=== PATIENT | male | born 1985 | race Caucasian/White ===

== ENCOUNTER 2018-04-02 05:30 | Emergency (ER) | payer OTHER, SELFPAY ==
[2018-04-02] VITALS (33 sets, daily range): BP systolic 99–152; BP diastolic 64–109; PULSE 112–131; RESP 19–48; TEMP 37.4; O2SAT 89–100
--- NOTE | 2018-04-02 05:59 | ED.GENADUL_ITS ---
Discharge Plan Disposition Patient Disposition: HOME Condition: Fair Discharge Details Chief Complaint: RespSymp Clinical Impression: Dyspnea, Pneumonia Reason For Visit: CHRISTOPH Primary Care Provider: Alma Gregory ED Provider: Ever Blackwell Home Meds and New Rx's Prescriptions: New prednisone 20 mg tablet 60 mg PO DAILY 4 Days Qty: 12 RF: 0 levofloxacin 750 mg tablet 750 mg PO DAILY Qty: 5 RF: 0 No Action tizanidine [Zanaflex] 4 MG capsule 1 tab PO .QID PRN RF: 0 Discharge Instructions Instructions: Pneumonia (ED) Discharge Data Discharge Date/Time-TO BE ENTERED AT DEPARTURE: 04/02/18 09:48 Medical Decision Making <Opal Pal DO - Last Filed: 04/04/18 08:24> 32-year-old male who presents with flulike symptoms and intermittent fevers for 5 days, left chest and left back pain since yesterday, and shortness of breath since 4 AM this morning. Given neb treatment per EMS. On arrival to ED, heart rate 120s, respirations 40s, O2 sat 94% on room air. Temp of 99.3. Patient appears uncomfortable with mild respiratory distress speaking in 3-4 word sentences. He is standing up leaning forward onto the stretcher due to discomfort in left chest and back which she states is worse with movement and coughing. He has scattered wheezing and rhonchi throughout. No calf tenderness or leg swelling. No DVT/PE risk factors. Left chest and back pain worse with movement and cough, so this appears muscular skeletal. Considering patient's age, symptom presentation, differential diagnosis appears most likely pneumonia, acute bronchitis, influenza. Due to the tachycardia, chest pain, back pain and hypoxia, will also do an EKG, chest x-ray and d-dimer. We will give a dose of Solu-Medrol and 10 mg albuterol neb and IVF and reassess. 0720 --labs reviewed and note white blood cell count 14, troponin negative, d- dimer 1574. Mag 1.4, will replete. Due to elevated d-dimer, will send for CT chest for PE study. His creatinine is 1.6 and GFR 39, will give fluids and sent for CT. 0820 --case endorsed to Dr. Blackwell to f/u on CT chest results and pt response to meds and final disposition. Review of CXR/CT in ED appears consistent with possibly pneumonia, antibiotics ordered. Medical Records Medical records reviewed: Yes I reviewed the patient's medical records. Lab Data Lab results reviewed: Yes I reviewed the patient's lab results. ECG Data Attestation: I personally reviewed and interpreted this ECG (s) as follows: Interpretation: 0631 -- 117, sinus, no ST elevation or depression, QTC 438. QRS 92. HPI <Opal Pal DO - Last Filed: 04/04/18 08:24> General Mode of arrival: ambulatory . Date/Time Provider Initiated Documentation: 04/02/18 05:48 . Limitations to Documentation: no limitations . Information obtained by: patient . HPI Narrative: Patient is a 32-year-old male who presents with cold and flulike symptoms for 5 days, and shortness of breath since this morning. Patient also complaining of left-sided chest and back pain worse with coughing since yesterday. Patient admits to intermittent fevers over the past few days. EMS gave patient neb treatment in route. Difficult to obtain full history due to patient's discomfort with shortness of breath and with chest and back pain and currently receiving albuterol treatment Related Data Home Medications Medication Instructions Recorded Confirmed tizanidine [Zanaflex] 1 tab PO .QID PRN 12/10/14 04/02/18 levofloxacin 750 mg PO DAILY #5 tab 04/02/18 prednisone 60 mg PO DAILY 4 Days #12 tab 04/02/18 Previous Rx's Medication Instructions Recorded levofloxacin 750 mg PO DAILY #5 tab 04/02/18 prednisone 60 mg PO DAILY 4 Days #12 tab 04/02/18 Allergies Allergy/AdvReac Type Severity Reaction Status Date / Time No Known Allergies Allergy Unverified 04/02/18 05:37 General Stated Complaint: RespSymp JOSEFINA: 2 Review of Systems <DO Monroe Rey Last Filed: 04/04/18 08:24> Review of Systems All systems reviewed & are unremarkable except as noted in HPI and below Constitutional Reports as per HPI, Denies chills and Denies fever(s) Eyes Denies blurry vision ENT Denies dizziness, Reports nasal congestion, Reports nasal discharge, Denies sore throat and Denies throat swelling Cardiovascular Denies chest pain and Reports dyspnea Respiratory Reports cough and Reports dyspnea Gastrointestinal Denies abdominal pain, Denies diarrhea and Denies vomiting Genitourinary Denies hematuria and Denies dysuria Musculoskeletal Denies back pain and Denies numbness Integumentary/Breasts Denies lesions and Denies rash Neurologic Denies dizziness and Denies numbness Allergic/Immunologic Denies throat swelling PFSH <Opal Pal DO - Last Filed: 04/04/18 08:24> Medical History Kyphosis (Acute) Surgical History No significant past surgical history (Acute) Social History Smoking/Tobacco Use Status: Current every day alcohol intake: never substance use type: marijuana Exam <Opal Pal DO - Last Filed: 04/04/18 08:24> Const General: cooperative and healthy appearing Orientation: alert and awake HENMT Head: normal to inspection Ears: hearing grossly normal bilaterally, external ears normal and TM's normal bilaterally General nose exam: external nose normal Face and sinus: normal facial exam Mouth: oral mucosae normal Teeth and gingiva: dentition normal Throat: posterior oropharynx normal Eyes General: appearance normal, both eyes and all related structures Eyelids: eyelids normal EOM: EOM intact bilaterally Neck Neck: normal visual inspection Lymphatic: no lymphadenopathy noted Chest Chest: normal inspection of the chest Resp Effort & Inspection: not able to speak in complete sentences (3-4 word sentences) and respiratory distress (mild-moderate) Auscultation: rhonchi and wheezes Cardio Rate: tachycardic Rhythm: regular rhythm GI Inspection: normal to inspection Palpation: soft, not firm, no guarding, no hepatosplenomegaly, no masses and nontender Auscultation: normal bowel sounds Skin General skin exam: no rashes or lesions noted Neuro General: alert and awake Cognition: normal cognition Speech: speech normal Gait: normal gait Motor: muscle tone normal throughout Sensory Exam: no sensory deficits noted Extrem General: normal to inspection, full ROM, normal capillary refill, no calf tenderness bilaterally and no edema Psych Appearance: grossly normal Mental Status: mental status grossly normal Speech and Movement: speech and movement normal Affect: normal affect Thought Process: normal Course <DO Monroe Rey Last Filed: 04/04/18 08:24> Vital Signs Temperature 99.3 F 04/02/18 05:27 Pulse 128 H 04/02/18 05:27 Respiratory Rate 48 H 04/02/18 05:27 Blood Pressure 139/82 04/02/18 05:27 Pulse Oximetry 94 L 04/02/18 05:27 Temperature 99.3 F 04/02/18 05:27 Temperature Source Oral 04/02/18 05:27 Pulse 128 H 04/02/18 05:27 Respiratory Rate 48 H 04/02/18 05:27 Respiratory Effort Labored 04/02/18 05:36 Blood Pressure 139/82 04/02/18 05:27 Blood Pressure Position Sitting 04/02/18 05:27 Pulse Oximetry 94 L 04/02/18 05:27 Oxygen Delivery Method Room Air 04/02/18 05:27 Oxygen Flow Rate 0 04/02/18 05:27 Sign Out <Opal Pal DO - Last Filed: 04/04/18 08:24> Sign Out Data: Sign Out Comment: Case endorsed to Dr. Blackwell to f/u on CT results and response to meds and final disposition Last updated by Opal Pal DO at 04/02/18 08:43 Post-Handoff Eval: pt's CT shows pna, no Pe or other findings per Dr. Leihg. He is 95% on room air, rr of 18 on my exam and speaking in full sentences. I did give a dose of ativan as I felt some of his pain was musculoskeletal in nature and on reexam he was asleep resting comfortably in no distress. I feel is stable for d/c on PO abx. I did advise f/u with pcp and return precautions given
[2018-04-02] MEDS: methylPREDNISolone SUCC 125 MG VIAL IVP (06:00)
[2018-04-02] MEDS: Albuterol 2.5 MG/3 ML INH SOLN VIAL 10 MG UPD (06:00)
[2018-04-02] MEDS: Normal Saline 1,000 ML 1000 ML IV ×2 (06:31→07:05)
[2018-04-02] MEDS: Ketorolac 30 MG/ML VIAL IVP (06:31)
[2018-04-02 06:32] LABS: Abs Immature Grans 0.26 k/cumm (0.0-0.09); HCT 43.6 % (40.0-50.0); HGB 15.2 g/dL (13.5-17.5); Mean Corp. HGB Concentration 34.9 g/dL (32.0-36.0); Mean Corpuscular Hemoglobin 30.3 pg (27.0-33.0); Mean Platelet Volume 9.6 fL (8.0-11.0); Platelet Count 251 x1000/uL (130-400); RBC 5.01 m/cumm (4.50-6.00); White Blood Cell Count 14.74 k/cumm (4.4-10.8)
[2018-04-02 06:47] LABS: ALT 31 U/L (12-78); AST 27 U/L (15-37); Albumin 2.9 g/dL (3.4-5.0); Alkaline Phosphatase 84 U/L (46-116); Anion Gap 13.3 mmol/L (3-11); BUN 21 mg/dL (7-18); Bilirubin, Total 1.1 mg/dL (0.2-1.0); CO2 25.7 mmol/L (21.0-32.0); CREATININE 1.96 mg/dL (0.70-1.30); Calcium 9.2 mg/dL (8.5-10.1); Chloride 92 mmol/L (98-107); Estimated GFR 39.35 (mL/min/1.73m2); Glucose 172 mg/dL (70-100); Magnesium 1.4 mg/dL (1.8-2.4); Potassium 3.4 mmol/L (3.5-5.1); Sodium 131 mmol/L (136-145); Total Protein 8.3 g/dL (6.4-8.2)
[2018-04-02 06:52] LABS: Troponin I < 0.02 ng/mL (0.00-0.06)
--- NOTE | 2018-04-02 06:55 | DI.RAD_ITS ---
SYMPTOM/DIAGNOSIS: COUGH, LT SIDED CHEST PAIN PORTABLE AP CHEST: Comparison is made with 04/18/14. Heart size and pulmonary vasculature are stable and within normal limits. There are bilateral basilar infiltrates seen. No effusion or pneumothorax is identified. The bones appear intact. IMPRESSION: Nonspecific bilateral basilar infiltrates which may represent pneumonia.
[2018-04-02 07:04] LABS: Absolute Lymphocyte Count 1.33 k/cumm (1.2-3.4); Absolute Monocyte Count 0.74 k/cumm (0.11-0.7); Absolute Neutrophil Count 12.53 k/cumm (1.2-6.7); Diff Comment Manual Differential
--- NOTE | 2018-04-02 07:07 | DI.VRAD_ITS ---
EXAM: XR Chest, 1 View EXAM DATE/TIME: 04/02/2018 5:57 AM CLINICAL HISTORY: 32 years old, male; Pain; Chest pain; Left-sided chest pain; Patient HX: L sided chest pain front to back, back pain TECHNIQUE: XR of the chest, 1 view. COMPARISON: CR CHEST 2 VIEWS PA,LAT 04/18/2014 11:47 AM FINDINGS: Lungs: Minimal nonspecific interstitial prominence. Pleural space: Unremarkable. No pleural effusion. No pneumothorax. Heart/Mediastinum: Unremarkable. No cardiomegaly. Bones/joints: Unremarkable. IMPRESSION: Minimal nonspecific interstitial prominence. Dictated and Authenticated by: Preston Sandoval MD. Ordering:URBAN Joseph MD
[2018-04-02 07:11] LABS: D-Dimer 1574 ng/mlFEU (<500)
--- NOTE | 2018-04-02 07:22 | DI.CT_ITS ---
SYMPTOM/DIAGNOSIS: PE, SOB, LT CHEST AND BACK PAIN PE CHEST CT: CT angiography was performed with multi slice acquisition and multi planar and 3D reconstruction. CT scan of the chest was performed according to the pulmonary embolus protocol. The thoracic aorta is of normal caliber. No aneurysm or dissection is identified. The central pulmonary arteries are patent. No evidence of a central pulmonary embolus is seen. The heart size is within normal limits. No pericardial effusion is seen. No findings to suggest right ventricular dysfunction are present. Mildly enlarged lymph nodes are seen in the mediastinum. There is a small left pleural effusion. No significant right pleural effusion is seen. No pneumothorax is identified. There are scattered opacities seen in the lower lobes and the right middle lobe suspicious for multi focal pneumonia. The tracheobronchial tree is unremarkable. Degenerative changes are seen in the spine. There is slight patient motion artifact present. IMPRESSION: 1. No evidence of a central pulmonary artery embolus, aortic dissection or aneurysm. 2. Multi focal pulmonary opacities suspicious for pneumonia. 3. Small left pleural effusion. The findings were discussed with the ER on the date of the examination.
[2018-04-02] MEDS: MORPHine 10 MG/ML VIAL 4 MG IVP (08:00)
[2018-04-02] MEDS: Omnipaque 350 MG/ML 100 ML BTL IJ (08:14)
[2018-04-02] MEDS: LEVOFLOXACIN 500 MG, LEVOFLOXACIN 250 MG 750 MG PO (08:30)
[2018-04-02] MEDS: LORazepam 2 MG/ML VIAL 1 MG IVP (08:40)
[2018-04-02] MEDS: Albuterol HFA 8 GM 60 PUFF INH IH (09:31)
== END 2018-04-02 09:48 | disposition home or self-care (01) ==
PROVIDERS: Physician Assistant; Emergency Provider Emergency Medicine; PCP Nurse Practitioner Family
DX: R06.00 Dyspnea, unspecified (principal); J18.9 Pneumonia, unspecified organism; R07.81 Pleurodynia
CPT/HCPCS: 36415; 71275; 80053; 87449; 93005; 94640; 96361; 96374; 96375; 99285; 71045; 83735; 84484; 85025; 85379; 93010; J1885; J2060; J2930; J3490; J7613

== ENCOUNTER 2018-04-09 15:45 | Outpatient (CLI) | payer OTHER, SELFPAY ==
--- NOTE | 2018-04-09 15:00 | DI.RAD_ITS ---
SYMPTOMS/DIAGNOSIS: PNEUMONIA, J18.9 PA AND LATERAL CHEST: Comparison is made with chest x-ray and chest CT of March,. There is now a large left pleural effusion, increasing from the previous exams. There is adjacent compressive atelectasis. The right lung appears clear. The cardiac silhouette is partially obscured on the left. A prominent thoracic kyphosis is again noted. IMPRESSION: Large left pleural effusion.
== END 2018-04-09 16:05 ==
PROVIDERS: PCP Nurse Practitioner Family; Visit Provider Nurse Practitioner Family
DX: J18.9 Pneumonia, unspecified organism (principal); J90 Pleural effusion, not elsewhere classified
CPT/HCPCS: 71046

== ENCOUNTER 2018-10-23 17:17 | Outpatient (REF) | payer OTHER, SELFPAY ==
[2018-10-23 19:59] LABS: Anion Gap 7.4 mmol/L (3-11); BUN 11 mg/dL (7-18); CO2 28.6 mmol/L (21.0-32.0); CREATININE 0.92 mg/dL (0.70-1.30); Calcium 8.8 mg/dL (8.5-10.1); Chloride 103 mmol/L (98-107); Glucose 95 mg/dL (70-100); Sodium 139 mmol/L (136-145); TSH (W/Ref FT4) 3.21 uIU/mL (0.36-3.74)
[2018-10-25 10:32] LABS: Hepatitis C Ab w Rflx HCV PCR Negative (NEGAT)
[2018-10-25 12:39] LABS: HIV-1/2 Ag & Ab Screen Negative (NEGAT)
[2018-10-25 13:12] LABS: Hepatitis B Surface Ag Negative (NEGAT)
== END 2018-10-23 17:37 ==
LOC: NCHCN 17:17
PROVIDERS: PCP Family Medicine; Visit Provider Family Medicine
DX: I10 Essential (primary) hypertension (principal); Z00.00 Encounter for general adult medical examination without abnormal findings
CPT/HCPCS: 80048; 86803; 87340; 87389; 84443

== ENCOUNTER 2018-11-30 08:00 | Emergency (ER) | payer OTHER, SELFPAY ==
[2018-11-30 08:04] VITALS: BP 130/65; PULSE 93; RESP 16; TEMP 37; O2SAT 96
--- NOTE | 2018-11-30 08:41 | W.ED.GENAD ---
Discharge Plan Disposition Patient Disposition: HOME Condition: Fair Discharge Details Chief Complaint: Cellulitis Clinical Impression: Cellulitis Primary Care Provider: Gavin Menjivar ED Provider: Carlene Padron Home Meds and New Rx's Prescriptions: New doxycycline hyclate 100 mg capsule 100 mg PO BID Qty: 14 RF: 0 Continued lisinopril-hydrochlorothiazide 20-12.5 mg Tablet 1 tab PO DAILY RF: 0 buprenorphine-naloxone [Suboxone] 12-3 mg Film 1 film BUCCAL Q24H RF: 0 Discharge Instructions Instructions: Cellulitis (ED) Additional Instructions: Encourage hydration. May use Tylenol and ibuprofen as needed for discomfort. Please take the doxycycline as prescribed. Even if symptoms improve, please take the entire course. If you develop fever/chills, increased pain, spreading of the redness, chest pain or shortness of breath or the new/worsening symptoms please seek care urgently once again. Otherwise, please follow-up with primary care this week for reevaluation. Referrals: Gavin Menjivar [Primary Care Provider] - Medical Decision Making Patient is a 33-year-old male with history of kyphosis, chief complaint of erythema to the right lower extremity. He reports this began proxy 4 days ago and is progressive and spreading. Notes erythema to the medial and anterior proximal thigh as well as the medial aspect of the right ankle. Denies any known trauma. No recent travel. No recent antibiotics. No IV drug use. States he has had a low-grade fever T-max of 99.5 at home. Is having tenderness at the time of palpation or rubbing the skin in this area. Denies any numbness or tingling. Denies any swelling. On exam, patient has a well-defined area of erythema that is warm to the touch, tender with palpation. No area of fluctuance. Cord. No calf tenderness. No appreciable swelling. Exam is most consistent with cellulitis. Patient was concern for possible DVT, well score for DVT negative to making patient low risk. His exam is more consistent with cellulitis and patient is very low risk for DVT at this time, I feel that treatment with antibiotics appropriate. The area of erythema was marked by myself. Advise close follow-up with primary care. He was given strict return precautions. All his questions and concerns were addressed and he is in agreement this plan. HPI General Mode of arrival: ambulatory. Date/Time Provider Initiated Documentation: 11/30/18 08:22. Limitations to Documentation: no limitations. Information obtained by: patient and RN notes reviewed. History of Present Illness 33 year old M presents to the emergency department with the chief complaint of erythema to RLE, described as moderate, with intensity rated at 6. Quality is described as aching, and is localized to the right and lower extremity. Patient reports no radiation. Patient started experiencing this day(s) (4) and it has been constant. No relieving factors improve symptom(s), No exacerbating factors reported . Patient notes fever/chills (reports tmax 99.5 at home) and rash; denies chest pain, cough, diaphoresis, loss of appetite, nausea/vomiting, shortness of breath and weakness. Patient did receive the following treatments prior to arrival, none Related Data Home Medications Medication Instructions Recorded Confirmed buprenorphine-naloxone [Suboxone] 1 film BUCCAL Q24H 11/30/18 11/30/18 doxycycline hyclate 100 mg PO BID #14 cap 11/30/18 lisinopril-hydrochlorothiazide 1 tab PO DAILY 11/30/18 11/30/18 Previous Rx's Medication Instructions Recorded doxycycline hyclate 100 mg PO BID #14 cap 11/30/18 Allergies Allergy/AdvReac Type Severity Reaction Status Date / Time No Known Allergies Allergy Unverified 11/30/18 08:12 General Stated Complaint: Cellulitis JOSEFINA: 3 Review of Systems Constitutional Constitutional: Reports as per HPI, Denies chills and Denies fever(s) Musculoskeletal Musculoskeletal: Reports as per HPI Integumentary/Breasts Skin/Breast: Reports as per HPI Neurologic Neurologic: Reports as per HPI, Denies sensory deficit and Denies paresthesias [facility] Medical History Kyphosis (Acute) [place] kyphosis Surgical History No significant past surgical history (Acute) Social History Smoking/Tobacco Use Status: Current every day Tobacco Type: e-cigarettes Alcohol Intake: never Drug use: Daily Substance use type: marijuana Do you feel safe at home: Yes Do you feel safe in your relationship?: Yes Exam Const General: cooperative, healthy appearing, comfortable, no acute distress and well developed Nutritional Appearance: average body habitus and well nourished Orientation: alert and awake Resp Effort & Inspection: normal respiratory effort, able to speak in complete sentences and no respiratory distress Cardio Rate: regular rate Rhythm: regular rhythm Skin General skin exam: no ecchymosis, erythema (as marked below), no excoriation(s), no fluctuance, no hypertrophy and no induration Full body images: 1. 2. areas of erythema. no fluctuance. Hot to the touch. Neuro General: alert and awake Cognition: normal cognition Speech: speech normal Gait: normal gait Sensory Exam: no sensory deficits noted Extrem General: abnormal to inspection (erythema as above), full ROM, normal capillary refill, no joint enlargement, no clubbing, cyanosis or edema, no pedal edema, no calf tenderness, normal gait, no calf tenderness bilaterally and other (2+ distal pulses) Psych Appearance: grossly normal and well kempt Mental Status: mental status grossly normal Speech and Movement: speech and movement normal Course Vital Signs Vital signs: Vital Signs Temperature 37 C 11/30/18 08:04 Pulse 93 H 11/30/18 08:04 Respiratory Rate 16 11/30/18 08:04 Blood Pressure 130/65 11/30/18 08:04 Pulse Oximetry 96 11/30/18 08:04 Temperature 37 C 11/30/18 08:04 Temperature Source Oral 11/30/18 08:04 Pulse 93 H 11/30/18 08:04 Respiratory Rate 16 11/30/18 08:04 Respiratory Effort Non-Labored 11/30/18 08:10 Blood Pressure 130/65 11/30/18 08:04 Blood Pressure Position Supine 11/30/18 08:04 Pulse Oximetry 96 11/30/18 08:04 Oxygen Delivery Method Room Air 11/30/18 08:04 Oxygen Flow Rate 0 11/30/18 08:04 Pain Level 6 11/30/18 08:04
== END 2018-11-30 08:54 | disposition home or self-care (01) ==
PROVIDERS: Emergency Provider Physician Assistant; PCP Family Medicine
DX: L03.115 Cellulitis of right lower limb (principal)
CPT/HCPCS: 99283

== ENCOUNTER 2018-12-04 12:07 | Outpatient (CLI) | payer OTHER, SELFPAY ==
[2018-12-04 14:18] LABS: D-Dimer 385 ng/mlFEU (<500)
== END 2018-12-04 12:27 ==
PROVIDERS: PCP Family Medicine; Visit Provider Family Medicine
DX: M79.604 Pain in right leg (principal)
CPT/HCPCS: 36415; 85379

== ENCOUNTER 2020-07-28 18:37 | Outpatient (REF) | payer OTHER, SELFPAY ==
[2020-07-28 19:06] LABS: Anion Gap 8.3 mmol/L (3-11); BUN 13 mg/dL (7-18); CO2 31.7 mmol/L (21.0-32.0); CREATININE 1.1 mg/dL (0.70-1.30); Calcium 9.7 mg/dL (8.5-10.1); Chloride 99 mmol/L (98-107); Glucose 90 mg/dL (74-106); Potassium 4.1 mmol/L (3.5-5.1); Sodium 139 mmol/L (136-145); TSH (W/Ref FT4) 1.71 uIU/mL (0.36-3.74)
== END 2020-07-28 18:38 | disposition home or self-care (01) ==
LOC: NCHCN 18:37
PROVIDERS: PCP Family Medicine; Visit Provider Family Medicine
DX: I10 Essential (primary) hypertension (principal); E66.9 Obesity, unspecified
CPT/HCPCS: 80048; 84443

== ENCOUNTER 2021-11-02 17:17 | Outpatient (REF) | payer OTHER, SELFPAY ==
[2021-11-02 22:36] LABS: Anion Gap 10.3 mmol/L (3-11); BUN 14 mg/dL (7-18); CO2 29.7 mmol/L (21.0-32.0); Calcium 9.3 mg/dL (8.5-10.1); Chloride 99 mmol/L (98-107); Glucose 72 mg/dL (74-106); Potassium 3.9 mmol/L (3.5-5.1); Sodium 139 mmol/L (136-145); Uric Acid 5.6 mg/dL (3.5-7.2)
[2021-11-02 22:56] LABS: Hemoglobin A1C 6.2 % (<5.7)
[2021-11-04 11:54] LABS: Lyme Ab w Rflx to Lyme Confirm Negative (Negative)
[2021-11-07 18:18] LABS: Anaplasma phagocytophilum Negative (Negative); B. miyamotoi PCR Negative (Negative); Babesia divergens/MO-1 Negative (Negative); Babesia duncani Negative (Negative); Babesia microti Negative (Negative); Ehrlichia chaffeensis Negative (Negative); Ehrlichia ewingii/canis Negative (Negative); Ehrlichia muris eauclairensis Negative (Negative)
== END 2021-11-02 17:18 | disposition home or self-care (01) ==
LOC: NCHCN 17:17
PROVIDERS: PCP Family Medicine; Visit Provider Family Medicine
DX: I10 Essential (primary) hypertension (principal)
CPT/HCPCS: 80048; 87798; 83036; 84550; 86618

== ENCOUNTER 2022-11-21 17:43 | Emergency (ER) | payer OTHER, SELFPAY ==
--- NOTE | 2022-11-21 17:45 | DI.RAD_ITS ---
Exam(s) XR HAND RT COMPLETE EXAM: XR HAND RT COMPLETE CLINICAL HISTORY: Finger amputation. TECHNIQUE: 2D digital imaging was performed. COMPARISON: No exams were available for comparison FINDINGS: 3 views There is traumatic fracture amputation of the distal 2nd-index finger at the mid level of the distal phalanx. The distal phalanx is partially amputated as well as fractured and the fracture does extend towards t he DIP joint on its medial aspect. No metallic foreign body seen. Proximal and mid phalanges appear intact. Other fingers unremarkable. IMPRESSION: Fracture amputation distal phalanx 2nd-index finger. DATA REPOSITORY: RADIATION DOSE DELIVERED:
[2022-11-21 17:47] VITALS: BP 197/102; PULSE 95; RESP 22; O2SAT 98
--- NOTE | 2022-11-21 17:58 | ED.GENADUL_ITS ---
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 MAXIMUM DAILY DOSE IS 12MG lisinopril-hydrochlorothiazide 20-12.5 mg Tablet 1 tab PO DAILY Patient Comments: no longer taking 11/21/22 CT buprenorphine-naloxone [Suboxone] 12-3 mg Film 1 film BUCCAL Q24H Patient Comments: No longer taking 11/21/22 CT doxycycline hyclate 100 mg capsule 100 mg PO BID Qty: 14 0RF Patient Comments: no longer taking 11/21/22 CT Discharge Instructions Instructions: Finger Amputation (ED) Additional Instructions: Please keep the dressing on until seen by orthopedics tomorrow. Nothing to eat or drink except for small sips of water after midnight. The anesthesia medication will wear off in approximately 4 hours. Please take the antibiotic with food as directed. Dr. Mcguire should call you tonight with instructions. Keep elevated above the level of your heart tonight. You may apply an ice pack over the dressing. If your finger with a bleed through the dressing you may apply pressure and reinforce the dressing. Please take Tylenol or Ibuprofen with food every 4-6 hours as needed for pain and swelling. Stand Alone Forms: Work Release Referrals: Sharif Mcguire MD [ [facility] STAFF PHYSICIAN] - 1 day Medical Decision Making 37-year-old male presents to the ER with a distal tip of his index finger amputated which occurred just prior to arrival with a lawnmower. Patient reports that a push mower was clogged and he reached down. He is right-hand dominant. Does have a past medical history of high blood pressure. No other injuries or associated symptoms he does not know when his last tetanus vaccination was. Bleeding is controlled upon arrival. He does have distal sensation intact bilaterally is able to slightly bend his PIP. 1814: Contacted orthopedic on-call Dr. Mcguire he was able to review images I sent over WebEx he recommends washout and repair in the OR tomorrow he reports that he will call him tonight to set up a time. Will irrigate here apply occlusive dressing and encourage n.p.o. after midnight. Patient was given Tdap booster and oxycodone. 184: Patient still c/o some pain, with infiltrate approx 1 cc more lidocaine and bupivicaine. Irrigated with Sterile NS by director of medical staff services, Foreign bodies manually removed as much as possible. Wound is contaminated with grass. Dressing applied Xeroform, Kerlix and Coban. Patient given a sling and instructed on elevating it. No need for patient to be n.p.o. after midnight. Patient was sent home with 2 Percocets Keflex and Flagyl. Patient remained hemodynamically stable throughout the remainder of stay. Plan is to have patient follow-up for surgery at 1 PM tomorrow. This text was generated using [employer] dictation system, please disregard any oddities of phrase or misspellings. Imaging Data Radiologic Study: Imaging: X-Ray Radiologist's impression: EXAM: XR HAND RT COMPLETE CLINICAL HISTORY: Finger amputation. TECHNIQUE: 2D digital imaging was performed. COMPARISON: No exams were available for comparison FINDINGS: 3 views There is traumatic fracture amputation of the distal 2nd-index finger at the mid level of the distal phalanx. The distal phalanx is partially amputated as well as fractured and the fracture does extend towards the DIP joint on its medial aspect. No metallic foreign body seen. Proximal and mid phalanges appear intact. Other fingers unremarkable. IMPRESSION: Fracture amputation distal phalanx 2nd-index finger. HPI General Mode of arrival: ambulatory . Date/Time Provider Initiated Documentation: 11/21/22 17:50 . Limitations to Documentation: no limitations . Information obtained by: patient, RN notes reviewed and old records reviewed . HPI Narrative: 37-year-old male presents to the ER with a distal tip of his index finger amputated which occurred just prior to arrival with a lawnmower. Patient reports that a push mower was clogged and he reached down. He is right-hand dominant. Does have a past medical history of high blood pressure. No other injuries or associated symptoms he does not know when his last tetanus vaccination was. Bleeding is controlled upon arrival. He does have distal sensation intact bilaterally is able to slightly bend his PIP. Related Data Home Medications Medication Instructions Recorded Confirmed buprenorphine 12 mg-naloxone 3 mg 1 film buccal Q24H 11/30/18 11/30/18 sublingual film (Suboxone) doxycycline hyclate 100 mg capsule 100 mg PO BID #14 caps 11/30/18 lisinopril 20 1 tab PO DAILY 11/30/18 11/30/18 mg-hydrochlorothiazide 12.5 mg tablet amlodipine 2.5 mg tablet 2.5 mg PO DAILY 11/21/22 11/21/22 buprenorphine 8 mg-naloxone 2 mg 1.5 tab sublingual DAILY 11/21/22 11/21/22 sublingual tablet cephalexin 500 mg tablet 500 mg PO BID 7 days #14 tabs 11/21/22 lisinopril 30 mg tablet 30 mg PO DAILY 11/21/22 11/21/22 metronidazole 500 mg tablet 500 mg PO BID 7 days #14 tabs 11/21/22 Previous Rx's Medication Instructions Recorded doxycycline hyclate 100 mg capsule 100 mg PO BID #14 caps 11/30/18 cephalexin 500 mg tablet 500 mg PO BID 7 days #14 tabs 11/21/22 metronidazole 500 mg tablet 500 mg PO BID 7 days #14 tabs 11/21/22 Allergies Allergy/AdvReac Type Severity Reaction Status Date / Time No Known Allergies Allergy Unverified 11/21/22 17:53 General Stated Complaint: Trauma JOSEFINA: 3 Review of Systems Constitutional Constitutional: Reports as per HPI Musculoskeletal Musculoskeletal: Reports as per HPI and Reports deformity (Distal tip index finger amputation) PFSH All Active Problems (Updated 11/21/22 @ 19:55 by Julieth Plasencia NP) Partial traumatic 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 (Acute) Medical History (Updated 11/21/22 @ 19:55 by Julieth Plasencia NP) Kyphosis Garcia kyphosis Surgical History No significant past surgical history Social History Smoking/Tobacco Use Status: Current every day Tobacco Type: e-cigarettes Smoking risk assessment performed?: Yes Alcohol Intake: never Drug use: Daily Substance use type: marijuana Do you feel safe at home: Yes Do you feel safe in your relationship?: Yes Exam Extrem Right upper extremity: hand Details: abnormal to inspection Details: a deformity Location: of the 2nd digit and laceration 2nd digit distal Details: irregular, actively bleeding (Controlled with pressure), contaminated, involving subcutaneous tissue, involving muscle tissue and with sensation intact Hand/finger images: 1. Distal amputation of finger noted just past the PIP. Able to bend the DIP and sensation intact prior to digital block. Course Vital Signs Vital signs: Vital Signs Pulse 95 H 11/21/22 17:47 Respiratory Rate 22 11/21/22 17:47 Blood Pressure 197/102 H 11/21/22 17:47 Pulse Oximetry 98 11/21/22 17:47 Pulse 95 H 11/21/22 17:47 Respiratory Rate 22 11/21/22 17:47 Respiratory Effort Normal 11/21/22 17:49 Respiratory Depth Normal 11/21/22 17:49 Respiratory Pattern Normal 11/21/22 17:49 Blood Pressure 197/102 H 11/21/22 17:47 Pulse Oximetry 98 11/21/22 17:47 Pain Level 10 11/21/22 17:49 Procedures Nerve Block Nerve Block 1: Time out performed: No Local Anesthetic: Lidocaine 1% and Bupivicaine 0.5% Amount of anesthesia used (mL): 5 Side: right Nerve Blocks: digital (Index Finger) Procedure Successful: Yes (Partial anesthesia achieved) Patient Tolerated Procedure: well Complications: inadequate anesthesia (Re-infiltrated with 1cc) Additional Comments: Anesthesia achieved.
[2022-11-21] MEDS: Lidocaine 1% Multi-Dose 50 ML VIAL (18:17)
[2022-11-21] MEDS: Bupivacaine 0.5% Pres-Free 30 ML VIAL (18:19)
[2022-11-21] MEDS: oxyCODONE 5 mg/Acetaminophen 325 mg TAB 1 TAB PO ×3 (18:47→20:32)
[2022-11-21 19:45] VITALS: BP 164/92; PULSE 82; RESP 18; O2SAT 99
[2022-11-21] MEDS: metroNIDAZOLE 500 MG TAB, 3 TABS/BTL PO (19:55)
[2022-11-21] MEDS: metroNIDAZOLE 500 MG TAB PO (19:55)
[2022-11-21] MEDS: Cephalexin 500 MG CAP PO (19:55)
[2022-11-21] MEDS: Cephalexin 500 MG CAP, 2 CAPS/BTL PO (19:55)
--- NOTE | 2022-11-25 08:14 | NUR.NOTE ---
Accessed chart to locate who Provider was. This is to complete the Ortho paperwork Nursing Note:
== END 2022-11-21 20:32 | disposition home or self-care (01) ==
PROVIDERS: Emergency Provider Registered Nurse Emergency; PCP Family Medicine
DX: S68.120A Partial traumatic metacarpophalangeal amputation of right index finger, initial encounter (principal); I10 Essential (primary) hypertension; W28.XXXA Contact with powered lawn mower, initial encounter; Y93.H2 Activity, gardening and landscaping; Y92.017 Garden or yard in single-family (private) house as the place of occurrence of the external cause; Y99.9 Unspecified external cause status; Z23 Encounter for immunization
CPT/HCPCS: 90472; 99284; 73130

== ENCOUNTER 2022-11-22 13:00 | Day surgery (SDC) | payer OTHER, SELFPAY ==
--- NOTE | 2022-11-22 12:28 | PDOC.DSDIS_ITS ---
Date of service: 11/22/22 Time of Service: 12:28 Discharge Plan Disposition Patient Disposition: Home Condition: Good Discharge Details Reason For Visit: RIF TRAUMATIC AMPUTATION Attending Provider: Sharif Mcguire Primary Care Provider: Gavin Menjivar Home Meds and New Rx's Prescriptions: New acetaminophen 500 mg tablet 1,000 mg PO TID Qty: 90 0RF hydrocodone-acetaminophen 5-325 mg tablet 1 tab PO Q6H PRN (Reason: pain) Qty: 6 0RF ibuprofen 600 mg tablet 600 mg PO TID PRN (Reason: pain) Qty: 90 0RF Continued amlodipine 2.5 mg tablet 2.5 mg PO DAILY Patient Comments: TAKE 1 TABLET BY MOUTH ONCE DAILY WITH LISINOPRIL lisinopril 30 mg tablet 30 mg PO DAILY Patient Comments: TAKE 1 TABLET BY MOUTH EVERY DAY buprenorphine-naloxone 8-2 mg tablet, sublingual 1.5 tab SUBLINGUAL DAILY Patient Comments: DISSOLVE 1.5 TABLETS UNDER THE TONGUE ONCE DAILY. MAXIMUM DAILY DOSE IS 12MG cephalexin 500 mg tablet 500 mg PO BID 7 Days Qty: 14 0RF metronidazole 500 mg tablet 500 mg PO BID 7 Days Qty: 14 0RF lisinopril-hydrochlorothiazide 20-12.5 mg Tablet 1 tab PO DAILY Patient Comments: no longer taking 11/21/22 CT buprenorphine-naloxone [Suboxone] 12-3 mg Film 1 film BUCCAL Q24H Patient Comments: No longer taking 11/21/22 CT doxycycline hyclate 100 mg capsule 100 mg PO BID Qty: 14 0RF Patient Comments: no longer taking 11/21/22 CT Discharge Instructions Additional Instructions: Finger Amputation Discharge Instructions Activity: You should keep the hand elevated as much as possible for the first few days. You may use the other fingers as tolerated but avoid trying to do too much too soon. You may perform light activities with the dressing in place. Dressing/Cast: Your splint should stay in place at all times. Do NOT get it wet. You may loosen the TRACEY wrap if you feel it is too tight and then rewrap more loosely. Medications: - You should take Tylenol and Ibuprofen for baseline pain control. - You have Hydrocodone for breakthrough pain. - You may apply ice over the thumb. 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
[2022-11-22 13:16] VITALS: BP 131/91; PULSE 105; RESP 18; TEMP 36.7; O2SAT 98
[2022-11-22] MEDS: Lidocaine 1% Multi-Dose 10 ML VIAL (14:36)
[2022-11-22] MEDS: Sodium Bicarbonate 50 MEQ/50 ML VIAL (14:37)
[2022-11-22] MEDS: Bupivacaine 0.25% Pres-Free 30 ML VIAL (15:00)
[2022-11-22 15:09] VITALS: BP 104/82; PULSE 74; RESP 16; TEMP 36.6; O2SAT 99
--- NOTE | 2022-11-22 21:51 | ROE_ITS ---
Date of service: 11/22/22 Time of Service: 15:00 Operative Note Operative Note DATE OF PROCEDURE: 11/22/22 PRE-OP DIAGNOSIS: Traumatic transphalangeal amputation of Right Index Finger POST-OP DIAGNOSIS: same PROCEDURE: Revision Amputation - Right index finger SURGEON: Sharif Mcguire ANESTHESIA TYPE: Local By Surgeon Refer to Anesthesia Record ESTIMATED BLOOD LOSS: 10 PATHOLOGY: none sent TOURNIQUET TIME: 0 COMPLICATIONS: None Patient was transported to: same day Patient's condition: stable Indications: I was called about Rishabh injuring his right index finger with a interactive art director blade. Given the severity of the injury and its contamination, i recommended an initial I&D in the ED followed by repeat I&D and revision amputation in the OR. I discussed this procedure with the patient. I reviewed the risks of the procedure to include, but not limited to, bleeding, infection, pain, stiffness, nail regrowth, damage to nerves or vessels. Despite these risks, the patient elected to proceed. Findings: There is a traumatic transphalangeal amputation phalanx of the right index finger. There is still some grafting formation of the wound. There is comminution of the phalanx. The laceration was a slightly dorsal oblique through the base of the nail fold. I was able to remove some loose bone pieces, sharply debrided the wound, and closed the wound leaving a stump of the phalanx intact. Procedure Description: Rishabh was greeted in the preoperative holding area where the correct side was identified and marked. The consent was reviewed with the patient and signed. All questions were answered. Rishabh was taken back to the operating room. The patient was placed into the supine position on the operating room table with the right arm on an arm board. All bony prominences were well padded. He had previously taken Keflex for his antibiotic prior to the case. The right arm was then prepped with Chloraprep and draped in a standard fashion with stockinette and extremity drape. A timeout to confirm correct identity, side and site, procedure, allergies, anesthesia, and medical concerns was performed. A digital block was then performed using 1% lidocaine buffered with sodium bicarbonate. This was allowed time to set up completely and was tested before proceeding with the case. I also then added 0.25% bupivacaine to extend this digital block. The wound was then thoroughly irrigated. Hematoma and fibrous tissue was removed. Using a knife as well as a forcep I was able to remove any gross debris of the wound and necrotic tissue. There were multiple radiographs which were also removed. This is inspected thoroughly. The remnant nail was then removed sharply as well as the germinal matrix undermining the medial fold to remove it in its entirety. There were multiple pieces of the distal phalanx, some which were completely loose. These were removed. The finger had a decent palmar flap of tissue with significant pulp still attached. I was able to slightly angled this and then made over the end of the finger with minimal gapping. However, there was some prominence from the palmar aspect of the distal phalanx. Therefore, I used a rongeur to resect a portion of this bone to allow better contouring of the finger. This is inspected in multiple positions and evaluate for any sharp prominences or points of pressure. Once this was adequate, I was able to reduce the flap of tissue over the finger with no more than 2 to 3 mm of exposed pulp material between epidermis edges. Once again I irrigated this thoroughly before final closure. I used a 3-0 nylon to secure the closure incorporating the palm and the skin over the end of the amputated distal phalanx. The finger was dressed with Xeroform, 4 x 4, tube gauze dressing. The patient tolerated the procedure well and was returned to the Same Day Surgery area in a stable condition suffering no known complication.
== END 2022-11-22 15:33 | disposition home or self-care (01) ==
PROVIDERS: PCP Family Medicine; Visit Provider Student in an Organized Health Care Education/Training Program
PROC: (CPT 26951; principal; 2022-11-22 15:15)
DX: S68.610A Complete traumatic transphalangeal amputation of right index finger, initial encounter (principal); W26.8XXA Contact with other sharp object(s), not elsewhere classified, initial encounter; S68.620A Partial traumatic transphalangeal amputation of right index finger, initial encounter
CPT/HCPCS: 26236

== ENCOUNTER 2022-12-12 14:03 | Day surgery (SDC) | payer OTHER, SELFPAY ==
--- NOTE | 2022-12-12 12:24 | W.PM.DSUDISC ---
Date of service: 12/12/22 Time of Service: 13:52 Discharge Plan Disposition Patient Disposition: Home Condition: Good Discharge Details Reason For Visit: traumatic partial amputation of right IF Attending Provider: Sharif Mcguire Primary Care Provider: Gavin Menjivar Home Meds and New Rx's Prescriptions: New acetaminophen 500 mg tablet 500 mg PO Q6H PRN (Reason: pain) Qty: 60 2RF ibuprofen 600 mg tablet 600 mg PO TID PRN (Reason: pain) Qty: 60 0RF hydrocodone-acetaminophen 5-325 mg tablet 1 tab PO Q6H PRN (Reason: severe pain) Qty: 6 0RF Rx Instructions: Take one tablet up to every 6 hours as needed for severe postoperative pain Continued ciprofloxacin HCl 750 mg tablet 750 mg PO BID Qty: 14 0RF amlodipine 2.5 mg tablet 2.5 mg PO DAILY Patient Comments: TAKE 1 TABLET BY MOUTH ONCE DAILY WITH LISINOPRIL lisinopril 30 mg tablet 30 mg PO DAILY Patient Comments: TAKE 1 TABLET BY MOUTH EVERY DAY buprenorphine-naloxone 8-2 mg tablet, sublingual 1.5 tab SUBLINGUAL DAILY Patient Comments: DISSOLVE 1.5 TABLETS UNDER THE TONGUE ONCE DAILY. MAXIMUM DAILY DOSE IS 12MG Discontinued acetaminophen 500 mg tablet 1,000 mg PO TID Qty: 90 0RF hydrocodone-acetaminophen 5-325 mg tablet 1 tab PO Q6H PRN (Reason: pain) Qty: 6 0RF ibuprofen 600 mg tablet 600 mg PO TID PRN (Reason: pain) Qty: 90 0RF Discharge Instructions Additional Instructions: Finger Amputation Discharge Instructions Activity:?You should keep the hand elevated as much as possible for the first few days.? You may use the other fingers as tolerated but avoid trying to do too much too soon.? You may perform light activities with the dressing in place. Dressing/Cast:?Your dressing should stay in place at all times.? Do NOT get it wet.? Keep dressing on for three days. After three days you should remove dressing - clean with soap and water then allow skin to air dry. You may apply a light dressing over the finger as needed but remove to clean and allow to air dry prior to placing a new dressing. Medications: -?You should take Tylenol and Ibuprofen for baseline pain control. - You have Hydrocodone for breakthrough pain. - You may apply ice over the finger. Follow-up:?7-10 days Stand Alone Forms: Jeanie Miller (DSU) Referrals: Sharif Mcguire MD [ [facility] STAFF PHYSICIAN] - Activity:: Elevate Remove Dressings/Wound Care:: 72 hours and Do Not Remove Shower/Bathe:: 72 hours and Cover Diet:: As Tolerated Discharge Orders Discharge Orders: Discharge Order (Routine); Ordered 12/12/22 Ordered By: Samantha Sullivan Discharge Data Discharge Date/Time-TO BE ENTERED AT DEPARTURE: 12/12/22 16:29
[2022-12-12 14:12] VITALS: BP 138/79; PULSE 108; RESP 18; TEMP 37.2; O2SAT 97
[2022-12-12] MEDS: Lidocaine 1% Pres-Free W/EPI 1/200,000 10 ML VIAL (15:36)
[2022-12-12 16:08] VITALS: BP 134/73; PULSE 88; RESP 18; TEMP 36.6; O2SAT 97
--- NOTE | 2022-12-12 17:42 | W.PM.OP ---
Date of service: 12/12/22 Time of Service: 16:25 Operative Note Operative Note DATE OF PROCEDURE: 12/12/22 PRE-OP DIAGNOSIS: Traumatic Amputation of Right Index Finger with Infection POST-OP DIAGNOSIS: same PROCEDURE: Revision amputation of the right index finger with irrigation and debridement of infection. SURGEON: Sharif Mcguire ANESTHESIA TYPE: Local By Surgeon Refer to Anesthesia Record ESTIMATED BLOOD LOSS: 5 PATHOLOGY: none sent COMPLICATIONS: None Patient was transported to: same day Patient's condition: stable Indications: I have seen Rishabh previously for a traumatic amputation of the right index finger via lawnmower blade. This was initially irrigated, debrided, and closed. However, he has had worsening signs of infection with some necrotic tissue. Therefore, I recommended proceeding to the operating room for repeat I&D with revision amputation. I reviewed the risks of the procedure to include, but not limited to, bleeding, infection, pain, stiffness, need for repeat procedures. Despite these risks, the patient elected to proceed. Findings: There was some necrotic tissue seen at the tip of the finger. This seemed to track all the way down to bone although there was no gross purulence. The ulnar aspect of the end of the index finger had some necrotic tissue. All this was debrided sharply until there was no necrotic tissue remaining and there is healthy bleeding tissue. The distal phalanx was revised, shortening by about 1 to 2 mm to allow for direct closure of the index finger. Procedure Description: Rishabh was greeted in the preoperative holding area where the correct side was identified and marked. The consent was reviewed with the patient and signed. All questions were answered. He was taken back to the operating room. The patient was placed into the supine position on the operating room table with the right arm on an arm board. All bony prominences were well padded. No prophylactic antibiotics were administered since this was a clean, elective hand surgical case. The right arm was then prepped with Betadine and draped in a standard fashion with stockinette and extremity drape. A timeout to confirm correct identity, side and site, procedure, allergies, anesthesia, and medical concerns was performed. A digital block was then performed using 1% lidocaine with epinephrine and buffered with sodium bicarbonate. This was allowed time to set up completely and was tested before proceeding with the case. The end of the finger was examined. There was a necrotic scar at the end of the finger which was removed. This exposed some necrotic tissue over the ulnar aspect which did track back to the distal phalanx. There is no gross purulence. I sharply debrided any necrotic appearing tissue. Copious amount of irrigation was utilized to further evaluate and irrigate the wound. Once again sharp debridement was used to get back to any bleeding skin and tissue. I thinned some of the pulp from the palmar aspect of the finger. I also used a rongeur to resect and revise amputation proximally about 2 mm at most. There is no sharp prominences. This was inspected on multiple occasions to make sure there is no sign of gross contamination or purulence nor necrotic tissue. The wound was then once again irrigated. The skin was then closed using a #4-0 nylon in interrupted fashion. The finger was dressed with Xeroform, 4 x 4, conform dressing. The patient tolerated the procedure well and was returned to the Same Day Surgery area in a stable condition suffering no known complication.
== END 2022-12-12 16:29 | disposition home or self-care (01) ==
PROVIDERS: PCP Family Medicine; Visit Provider Student in an Organized Health Care Education/Training Program
PROC: (CPT 11044; principal; 2022-12-12 16:45)
DX: S68.620A Partial traumatic transphalangeal amputation of right index finger, initial encounter (principal); W31.89XA Contact with other specified machinery, initial encounter; I96 Gangrene, not elsewhere classified
CPT/HCPCS: 11044

== ENCOUNTER 2023-01-18 11:37 | Outpatient (CLI) | payer OTHER, SELFPAY ==
--- NOTE | 2023-01-18 11:15 | DI.RAD_ITS ---
Exam(s) XR FINGER RT INDEX EXAM: XR FINGER RT INDEX CLINICAL HISTORY: f/u INFECTED R INDEX FINGER. TECHNIQUE: 2D digital imaging was performed. Three views. COMPARISON: CR XR HAND RT COMPLETE from 11/21/[address] UPPER EXTREMITY RT WO from 01/02/2023 FINDINGS: BONES: Previous amputation of the majority of the distal phalanx of the index finger. Roughly stable appearance from prior CT of the erosion at the distal aspect of the middle phalanx. IMPRESSION: Roughly stable appearance of amputation of the distal phalanx. Stable appearance of bony erosion at t he middle phalanx. DATA REPOSITORY: RADIATION DOSE DELIVERED:
== END 2023-01-18 11:38 | disposition home or self-care (01) ==
LOC: DIORS 11:38
PROVIDERS: PCP Family Medicine; Visit Provider Student in an Organized Health Care Education/Training Program
DX: S68.110A Complete traumatic metacarpophalangeal amputation of right index finger, initial encounter (principal); X58.XXXA Exposure to other specified factors, initial encounter
CPT/HCPCS: 73140

== ENCOUNTER 2023-01-25 04:53 | Emergency (ER) | payer OTHER, SELFPAY ==
[2023-01-25 04:57] VITALS: BP 151/92; PULSE 105; RESP 20; TEMP 37; O2SAT 94
[2023-01-25 05:04] VITALS: BP 147/77; PULSE 97; RESP 18; TEMP 37; O2SAT 95
[2023-01-25] MEDS: Normal Saline 1,000 ML 1000 ML IV (05:40)
[2023-01-25 05:41] LABS: Abs Immature Grans 0.02 10^3/uL (0.0-0.06); Absolute Basophil Count 0.03 10^3/uL (0.0-0.2); Absolute Eosinophil Count 0.01 10^3/uL (0.0-0.7); Absolute Lymphocyte Count 1.39 10^3/uL (1.2-3.4); Absolute Neutrophil Count 4.33 10^3/uL (1.2-6.7); Basophils % 0.5; Eosinophils % 0.2; HCT 38.3 % (40.0-50.0); HGB 13.1 g/dL (13.5-17.5); Immature Grans % 0.3; Lymphocytes % 21.1; MCH 28.6 pg (27.0-33.0); MCHC 34.2 % (32.0-36.0); MCV 84 fL (80-95); MPV 8.4 fL (8.0-11.0); Monocytes % 12.2; Neutrophils % 65.7; Platelet Count 324 10^3/uL (130-400); RBC 4.58 10^6/uL (4.36-5.78); RDW 12.7 % (11.8-14.1); RDW-SD 38.2 fL; WBC 6.58 10^3/uL (4.4-10.8)
--- NOTE | 2023-01-25 05:42 | ED.GENADUL_ITS ---
Discharge Plan Disposition Patient Disposition: Home Condition: Good Discharge Details Clinical Impression: Exacerbation of reactive airway disease, Community acquired pneumonia Primary Care Provider: Gavin Menjivar ED Provider: Nathan Raines Home Meds and New Rx's Prescriptions: New doxycycline hyclate 100 mg tablet 100 mg PO BID Qty: 20 0RF No Action sulfamethoxazole-trimethoprim [Bactrim DS] 800-160 mg tablet 1 tab PO BID Qty: 14 0RF Rx Instructions: take 1 tablet by mouth twice per day for 7 days metronidazole 500 mg tablet 500 mg PO TID Qty: 21 0RF amlodipine 2.5 mg tablet 2.5 mg PO DAILY Patient Comments: TAKE 1 TABLET BY MOUTH ONCE DAILY WITH LISINOPRIL lisinopril 30 mg tablet 30 mg PO DAILY Patient Comments: TAKE 1 TABLET BY MOUTH EVERY DAY buprenorphine-naloxone 8-2 mg tablet, sublingual 1.5 tab SUBLINGUAL DAILY Patient Comments: DISSOLVE 1.5 TABLETS UNDER THE TONGUE ONCE DAILY. MAXIMUM DAILY DOSE IS 12MG acetaminophen 500 mg tablet 500 mg PO Q6H PRN (Reason: pain) Qty: 60 2RF ibuprofen 600 mg tablet 600 mg PO TID PRN (Reason: pain) Qty: 60 0RF Discharge Instructions Instructions: Community Acquired Pneumonia (ED) Additional Instructions: At this time you have evidence of mild pneumonia. Please take the doxycycline as directed. Do not take it on an empty stomach as it can cause nausea and vomiting. Please avoid any dairy products or calcium supplements while on the doxycycline as these could limit its effectiveness. Please make sure to take a daily probiotic while you are on these various antibiotics to help reduce the risk of potential infectious diarrhea. Please continue to abstain from smoking. Take the Symbicort inhaler, 2 puffs every 12 hours until your symptoms resolve. If you notice any worsening of your symptoms, or any new symptoms such as vomiting, diarrhea, fever, chills, shortness of breath, chest pain, numbness, weakness, or fainting , please return immediately to the emergency department for reevaluation. Please follow up with your primary care provider as soon as possible for reassessment and reevaluation. As always, it was a pleasure participating in your medical care today. Referrals: Gavin Menjivar [Primary Care Provider] - Medical Decision Making 37-year-old male with a past medical history of regular tobacco use, hypertension, recently traumatically amputated right index finger with subsequent complication of persistent mild infection currently on Bactrim and metronidazole and being managed by Dr. Mcguire, presents today for 4 to 5 days of cough, chills, occasional shortness of breath, and fatigue. Patient has had pneumonia twice before and states that this is how he felt when he had pneumonia in the past. He denies any vomiting or diarrhea aside for 2 episodes of small amount of sputum that came up when he had a coughing fit. He denies abdominal pain. He denies any chest pain or pleuritic chest pain. He denies any hemoptysis. No other sick contacts at home. No other complaints at this time. Patient has not smoked in the last few days secondary to his cough and shortness of breath. Exam demonstrates a well-appearing male, oxygenation around 94 to 95%. Crackles in the right lower lung field. Diffuse wheezes throughout. Suspected combination of reactive airway disease, asthma exacerbation, and community- acquired pneumonia. Bedside ultrasound was performed and shows evidence of focal consolidation in the right lower lobe. We will treat this with doxycycline. We discussed risks and benefits of triple antibiotic therapy, and understanding it patient has excepted treatment. We will recommend probiotic for home. Patient demonstrates good lung sliding bilaterally, no evidence of pneumothorax. We will give a breathing treatment here, 100 mg of IV doxycycline, liter of normal saline to help rehydrate, and send the patient home with a prescription for doxycycline, and Symbicort inhaler. Patient has refused COVID testing stating that COVID is not real to nursing staff. We will monitor closely and reassess. 6:22 AM Patient feels improved after breathing treatment, laboratory work-up unremarkable. Oxygenation excellent. No indication for admission at this time. Patient stable for discharge. We will send prescription for doxycycline, give him a Symbicort inhaler. Discussed red flags for which to return. I have extensively reviewed the treatment plan and discharge instructions with the patient. I have addressed all patient concerns at this time. The patient was made aware of what symptoms to monitor for that would warrant a return to the emergency department. Discussed the plan with the patient, they demonstrate verbal understanding and agreement with our assessment and plan at this time. The documentation in this chart was dictated using [employer] dictation software. Please excuse any dictation errors. HPI General Date/Time Provider Initiated Documentation: 01/25/23 05:08 . HPI Narrative: 37-year-old male with a past medical history of regular tobacco use, hypertension, recently traumatically amputated right index finger with subsequent complication of persistent mild infection currently on Bactrim and metronidazole and being managed by Dr. Mcguire, presents today for 4 to 5 days of cough, chills, occasional shortness of breath, and fatigue. Patient has had pneumonia twice before and states that this is how he felt when he had pneumonia in the past. He denies any vomiting or diarrhea aside for 2 episodes of small amount of sputum that came up when he had a coughing fit. He denies abdominal pain. He denies any chest pain or pleuritic chest pain. He denies any hemoptysis. No other sick contacts at home. No other complaints at this time. Patient has not smoked in the last few days secondary to his cough and shortness of breath. Related Data Home Medications Medication Instructions Recorded Confirmed amlodipine 2.5 mg tablet 2.5 mg PO DAILY 11/21/22 01/25/23 buprenorphine 8 mg-naloxone 2 mg 1.5 tab sublingual DAILY 11/21/22 01/25/23 sublingual tablet lisinopril 30 mg tablet 30 mg PO DAILY 11/21/22 01/25/23 acetaminophen 500 mg tablet 500 mg PO Q6H PRN pain #60 tabs 12/12/22 01/25/23 ibuprofen 600 mg tablet 600 mg PO TID PRN pain #60 tabs 12/12/22 01/25/23 metronidazole 500 mg tablet 500 mg PO TID #21 tabs 01/23/23 01/25/23 sulfamethoxazole 800 1 tab PO BID #14 tabs 01/23/23 01/25/23 mg-trimethoprim 160 mg tablet (Bactrim DS) doxycycline hyclate 100 mg tablet 100 mg PO BID #20 tabs 01/25/23 Previous Rx's Medication Instructions Recorded acetaminophen 500 mg tablet 500 mg PO Q6H PRN pain #60 tabs 12/12/22 ibuprofen 600 mg tablet 600 mg PO TID PRN pain #60 tabs 12/12/22 metronidazole 500 mg tablet 500 mg PO TID #21 tabs 01/23/23 sulfamethoxazole 800 1 tab PO BID #14 tabs 01/23/23 mg-trimethoprim 160 mg tablet (Bactrim DS) doxycycline hyclate 100 mg tablet 100 mg PO BID #20 tabs 01/25/23 Allergies Allergy/AdvReac Type Severity Reaction Status Date / Time No Known Allergies Allergy Verified 01/25/23 05:07 General Stated Complaint: RespSymp JOSEFINA: 3 Review of Systems All systems reviewed & are unremarkable except as noted in HPI and below PFSH All Active Problems (Updated 01/25/23 @ 05:50 by Nathan Raines DO) Community acquired pneumonia (Acute) Exacerbation of reactive airway disease (Acute) Osteomyelitis of finger of right hand (Acute) Traumatic amputation of right index finger with complication (Acute) I&D and revision amputation DOS: 12/12/2022 Revision amputation DOS: 11/22/2022 Infected finger laceration (Acute) Medical History Kyphosis Garcia kyphosis Social History Smoking/Tobacco Use Status: Current every day Tobacco Type: cigarettes Smoking risk assessment performed?: Yes Alcohol Intake: never Drug use: Daily Substance use type: marijuana Details: last time smoked 01/22/23 Housing: house Current gender identity: male Do you feel safe at home: Yes Do you feel safe in your relationship?: Yes Exam Narrative Exam Narrative: 1.Const: Well-nourished, Well-developed, appearing stated age 2.Eyes: PERRL, no conjunctival injection, and symmetrical lids. 3.ENT: Atraumatic external nose and ears. Moist MM. Neck: Symmetric, trachea midline, No thyromegaly. 4.CVS: +S1/S2, No murmurs or gallops. Peripheral pulses 2+ and equal in all extremities. Brisk capillary refill in all extremities. 5.RESP: Diffuse wheezes throughout, mild crackles in the right lower lobe. No rhonchi. 6.GI: Soft, Nontender/Nondistended, No hepatosplenomegaly. No guarding or rebound. 7.MSK: Normocephalic/Atraumatic, Extremities w/o deformity or ttp No cyanosis or clubbing, Normal movement of all extremities 8.Skin: Warm, Dry. No rashes or lesions. 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 Sensation grossly intact, no focal neurologic deficits. 10.Psych: (AAO) x3. Appropriate mood and affect Course Vital Signs Vital signs: Vital Signs Temperature 37.0 C 01/25/23 04:57 Pulse 105 H 01/25/23 04:57 Respiratory Rate 20 01/25/23 04:57 Blood Pressure 151/92 H 01/25/23 04:57 Pulse Oximetry 94 01/25/23 04:57 Temperature 37.0 C 01/25/23 05:04 Temperature Source Oral 01/25/23 05:04 Pulse 97 H 01/25/23 05:04 Respiratory Rate 18 01/25/23 05:04 Respiratory Effort Normal, Non-Labored 01/25/23 05:04 Respiratory Depth Normal 01/25/23 05:04 Blood Pressure 147/77 H 01/25/23 05:04 Blood Pressure Position Sitting 01/25/23 05:04 Pulse Oximetry 95 01/25/23 05:04 Oxygen Delivery Method Room Air 01/25/23 05:04 Oxygen Flow Rate 0 01/25/23 04:57 Pain Level 0 01/25/23 04:57 Lab/Test Results Lab/Test Results: Laboratory Tests Range/Units 01/25/23 05:34 WBC (4.4-10.8) 10^3/uL 6.58 RBC (4.36-5.78) 10^6/uL 4.58 Hgb (13.5-17.5) g/dL 13.1 L Hct (40.0-50.0) % 38.3 L MCV (80-95) fL 84 MCH (27.0-33.0) pg 28.6 MCHC (32.0-36.0) % 34.2 RDW (11.8-14.1) % 12.7 Plt Count (130-400) 10^3/uL 324 MPV (8.0-11.0) fL 8.4 Immature Gran % 0.3 Neutrophils % 65.7 Lymphocytes % 21.1 Monocytes % 12.2 Eosinophils % 0.2 Basophils % 0.5 Nucleated RBC % (0.0-0.3) % 0.0 Absolute Neutrophils (1.2-6.7) 10^3/uL 4.33 Absolute Lymphocytes (1.2-3.4) 10^3/uL 1.39 Absolute Monocytes (0.1-0.8) 10^3/uL 0.80 Absolute Eosinophils (0.0-0.7) 10^3/uL 0.01 Absolute Basophils (0.0-0.2) 10^3/uL 0.03 POCUS Exam (ED) Limited Thoracic Lung Exam DATE OF EXAM: 01/25/23 TIME OF EXAM: 05:43 PROVIDER THAT PERFORMED THE STUDY: Nathan Raines IS THIS A REPEAT EXAM DURING THIS ENCOUNTER: No REASON FOR EXAM: Pneumonia VISUALIZED STRUCTURES: right lateral, left lateral, right posterior and left posterior PERTINENT FINDINGS/IMPRESSION: B-lines/right side and Pneumonia; lung sliding left side and lung sliding left side INCIDENTAL FINDINGS: B-lines,, tingling and streaking noted in the right lower lung field clear clearly consistent with pneumonia Exam complete
[2023-01-25] MEDS: methylPREDNISolone SUCC 125 MG VIAL IVP (05:45)
[2023-01-25] MEDS: DOXYCYCLINE 100 MG in Normal Saline 100 ML IVPB (05:45)
[2023-01-25] MEDS: Albuterol/Ipratropium 3 ML UPD VIAL UPD (05:45)
[2023-01-25] MEDS: Water,Injection,Sterile 10 ML VIAL (05:54)
[2023-01-25 05:56] LABS: ALT 26 U/L (16-63); AST 23 U/L (15-37); Albumin 3.2 g/dL (3.4-5.0); Alkaline Phosphatase 61 U/L (46-116); Anion Gap 6.8 mmol/L (3-11); BUN 9 mg/dL (7-18); Bilirubin, Total 0.4 mg/dL (0.2-1.0); CO2 27.2 mmol/L (21.0-32.0); Calcium 8.9 mg/dL (8.5-10.1); Chloride 98 mmol/L (98-107); Estimated GFR 98.18 (mL/min/1.73m2); Glucose 129 mg/dL (74-106); Potassium 4.3 mmol/L (3.5-5.1); Sodium 132 mmol/L (136-145); Total Protein 7.6 g/dL (6.4-8.2)
[2023-01-25 06:52] VITALS: BP 126/83; PULSE 94; RESP 16; O2SAT 92
[2023-01-25] MEDS: Budesonide/Formoterol 160/4.5 6 GM 60 PUFF INH IH (07:02)
[2023-01-25] MEDS: Inhaler, Assist Device 1 EACH MC (07:05)
== END 2023-01-25 07:07 | disposition home or self-care (01) ==
LOC: ER 07:13
PROVIDERS: Emergency Provider Student in an Organized Health Care Education/Training Program; PCP Family Medicine
DX: J18.9 Pneumonia, unspecified organism (principal); J45.901 Unspecified asthma with (acute) exacerbation; I10 Essential (primary) hypertension; F17.210 Nicotine dependence, cigarettes, uncomplicated
CPT/HCPCS: 76604; 80053; 87637; 96365; 96375; 99284; 85025; 99283; J2930; J7620

== ENCOUNTER → 2023-03-21 01:37 | Outpatient (CLI) | payer OTHER, SELFPAY ==
--- NOTE | 2023-03-21 07:15 | DI.MRI_ITS ---
Exam(s) MR UPPER EXTREMITY RT WO EXAM: MR UPPER EXTREMITY RT WO CLINICAL HISTORY: pain,osteomyelitis finger,traumatic amputation,infection,S68.110a,m86.9,. TECHNIQUE: Multiplanar multisequence MRI was performed. COMPARISON: Comparison x-rays 01/18/2023 FINDINGS: BONES: Patient has had a prior amputation with the base of the distal phalanx of the index finger rem aining. There are now destructive changes seen of the head of the middle phalanx of the index finger . There is hypointense signal seen in the remnant of the distal phalanx and the distal aspect of the middle phalanx of the index finger. There is normal T1 signal seen in the proximal phalanx of the i ndex finger and the 2nd metacarpal bone. On the T2 weighted images there is hyperintense signal seen in the remnant of the distal phalanx and within the middle phalanx of the index finger. The finding s are suspicious for osteomyelitis. There is mild hyperintense T2 signal in the head of the proximal phalanx of the index finger with normal T1 signal. This may be reactive. JOINTS: There is fluid seen within the DIP joint of the index finger. TENDONS: Flexors: Unremarkable. Extensors: The distal aspect of the extensor tendon is not well visualized. It appears attenuated com pared to tendons on adjacent fingers. MUSCLES: Unremarkable. SOFT TISSUES: No focal fluid collection is seen to suggest an abscess. There is mild edema seen in th e soft tissues of the distal index finger. LIGAMENTS: Unremarkable. OTHER: IMPRESSION: Destructive changes involving the head of the middle phalanx of the index finger. Abnormal signal inv olving the remnant of the distal phalanx of the index finger and the distal aspect of the middle phal anx of the index finger suspicious for osteomyelitis. No abscess is identified. DATA REPOSITORY:
== END ==
PROVIDERS: PCP Family Medicine; Visit Provider Student in an Organized Health Care Education/Training Program
DX: M86.141 Other acute osteomyelitis, right hand (principal); S68.110D Complete traumatic metacarpophalangeal amputation of right index finger, subsequent encounter; L08.89 Other specified local infections of the skin and subcutaneous tissue
CPT/HCPCS: 73218

== ENCOUNTER 2023-03-29 12:02 | Day surgery (SDC) | payer OTHER, SELFPAY ==
--- NOTE | 2023-03-29 12:19 | W.PM.DSUDISC ---
Date of service: 03/29/23 Time of Service: 12:22 Discharge Plan Disposition Patient Disposition: Home Condition: Good Discharge Details Reason For Visit: Right index finger osteomyelitis Attending Provider: Sharif Mcguire Primary Care Provider: Gavin Menjivar [place] Meds and New Rx's Prescriptions: New acetaminophen 500 mg tablet 500 mg PO Q6H PRN (Reason: pain) Qty: 60 2RF hydrocodone-acetaminophen 5-325 mg tablet 1 tab PO Q6H PRN (Reason: severe pain) Qty: 6 0RF Rx Instructions: Take one tablet up to every 6 hours as needed for severe postoperative pain ibuprofen 600 mg tablet 600 mg PO TID PRN (Reason: pain) Qty: 60 0RF cefadroxil 500 mg capsule 500 mg PO BID Qty: 14 0RF Continued ciprofloxacin HCl 750 mg tablet 750 mg PO BID Qty: 28 0RF amlodipine 2.5 mg tablet 2.5 mg PO DAILY Patient Comments: TAKE 1 TABLET BY MOUTH ONCE DAILY WITH LISINOPRIL lisinopril 30 mg tablet 30 mg PO DAILY Patient Comments: TAKE 1 TABLET BY MOUTH EVERY DAY buprenorphine-naloxone 8-2 mg tablet, sublingual 1.5 tab SUBLINGUAL DAILY Patient Comments: DISSOLVE 1.5 TABLETS UNDER THE TONGUE ONCE DAILY. MAXIMUM DAILY DOSE IS 12MG Discontinued acetaminophen 500 mg tablet 500 mg PO Q6H PRN (Reason: pain) Qty: 60 2RF ibuprofen 600 mg tablet 600 mg PO TID PRN (Reason: pain) Qty: 60 0RF Discharge Instructions Additional Instructions: Finger irrigation & debridement discharge Instructions Activity:?You should keep the hand elevated as much as possible for the first few days.? You may use the other fingers as tolerated but avoid trying to do too much too soon.? You may perform light activities with the dressing in place. Dressing/Cast:?Your dressing should stay in place at all times.? Do NOT get it wet.? Keep dressing on for three days. After three days you should remove dressing - clean with soap and water then allow skin to air dry. You may apply a light dressing over the finger as needed but remove to clean and allow to air dry prior to placing a new dressing. Medications: -?You should take Tylenol and Ibuprofen for baseline pain control. - You have Hydrocodone for breakthrough pain. - You may apply ice over the finger. - You have been called in an antibiotic which may be modified based on lab results. Follow-up:?7-10 days Referrals: Sharif Mcguire MD [ [facility] STAFF PHYSICIAN] - Activity:: Elevate Remove Dressings/Wound Care:: Do Not Remove Shower/Bathe:: 72 hours and Cover Diet:: As Tolerated Discharge Orders Discharge Orders: Discharge Order (Routine); Ordered 03/29/23 Ordered By: Samantha Sullivan
[2023-03-29 12:24] VITALS: BP 124/79; PULSE 105; RESP 16; TEMP 36.4; O2SAT 98
[2023-03-29] MEDS: Lidocaine 1% Multi-Dose W/EPI 1/100,000 50 ML VIAL (13:49)
[2023-03-29] MEDS: Sodium Bicarbonate 50 MEQ/50 ML VIAL (13:50)
[2023-03-29 14:10] VITALS: BP 132/74; PULSE 85; RESP 16; TEMP 36.7; O2SAT 92
--- NOTE | 2023-03-29 16:10 | W.PM.OP ---
Date of service: 03/29/23 Time of Service: 13:15 Operative Note Operative Note DATE OF PROCEDURE: 03/29/23 PRE-OP DIAGNOSIS: Right Index Finger Infection, Osteomyelitis PROCEDURE: Irrigation and debridement of right index finger including bone SURGEON: Sharif Mcguire ANESTHESIA TYPE: Local By Surgeon Refer to Anesthesia Record ESTIMATED BLOOD LOSS: 10 PATHOLOGY: other (Aerobic and anaerobic cultures were sent) TOURNIQUET TIME: 10 COMPLICATIONS: None Patient was transported to: same day Patient's condition: stable Indications: Rishabh is a 37-year-old who suffered a traumatic partial amputation of the right index finger from a lawnmower blade. Unfortunately, has had multiple procedures but continues to have recurrent infection. MRI recently was performed which demonstrated collection of purulent material volar to the distal aspect middle phalanx with changes of osteomyelitis about the remnant distal phalanx and question of the middle phalanx. He had ongoing purulent discharge and therefore I recommended proceeding with repeat irrigation debridement with involvement of bone. I discussed the risk of the procedure to include bleeding, pain, stiffness, continued infection, need for repeat procedures, skin healing difficulties, damage to nerves and vessels and tendons. Despite these risk, he elects to proceed. Findings: There was a pocket about the palmar aspect of the middle phalange which was in communication with the portion of the distal phalanx and the end of the finger. The remnant distal phalanx was of poor quality and was removed and aggressive debridement was performed of the palmar aspect of the middle phalanx. Procedure Description: Rishabh was greeted in the preoperative holding area. His identity was confirmed the correct site was identified and marked. The consent was reviewed the patient and signed. History physical was updated. He is taken to the operating room placed in the supine position with the right hand on a hand table. The right hand was prepped with ChloraPrep and draped in a standard fashion. A digital nerve block was then performed utilizing 1% lidocaine with epinephrine, buffered with sodium bicarbonate. After this had a chance to set up completely I then proceeded with the procedure. I utilized the ulnar half of the distal transverse incision from the amputation surgery, excising the hole at the end the finger where the purulent material continued from. I took this over to the ulnar aspect and then proceeded in a Alton's type incision diagonally across the middle phalanx just past the midline. This incision was taken down sharply. Once full-thickness skin flaps were elevated, I was able to visualize remnant flexor tendon. There was some notable degeneration and inflammatory changes of the soft tissues about the distal end the finger. These were transected sharply with the tenotomy scissors. The bone that was reddened of the distal phalanx was quite soft. There was some attachment of the FDP tendon but the bone was of quite poor quality. [place]ur was utilized to test the bone which had very little structure to it and therefore was removed. This showed a pathway from the edge of the skin of the distal finger all the way to the palmar aspect of the middle phalanx. The middle phalanx appear to be quite structural. It was not terribly soft. There is no gross purulent material encountered. Cultures both anaerobic and aerobic were obtained. The finger was fully irrigated with normal saline. A Altagracia drain was utilized as a tourniquet for the case and this was removed. There was a generalized ooze of the finger but there is no specific bleeding. The wound was then closed with 4-0 nylon. This was dressed with Xeroform, 2 x 2 gauze and a conformer dressing. He tolerated the procedure well was taken back to the day surgery unit area.
== END 2023-03-29 14:46 | disposition home or self-care (01) ==
PROVIDERS: PCP Family Medicine; Visit Provider Student in an Organized Health Care Education/Training Program
PROC: (CPT 11044; principal; 2023-03-29 13:00)
DX: L08.9 Local infection of the skin and subcutaneous tissue, unspecified (principal); M86.141 Other acute osteomyelitis, right hand; S68.110A Complete traumatic metacarpophalangeal amputation of right index finger, initial encounter; W28.XXXA Contact with powered lawn mower, initial encounter; W26.8XXA Contact with other sharp object(s), not elsewhere classified, initial encounter
CPT/HCPCS: 11044; 87077; 87070; 87075; 87186; 87205; J2004

== ENCOUNTER 2023-05-31 17:52 | Outpatient (REF) | payer OTHER, SELFPAY ==
[2023-05-31 19:42] LABS: Hemoglobin A1C 5.7 % (<5.7)
[2023-05-31 19:59] LABS: Anion Gap 9.5 mmol/L (3-11); BUN 20 mg/dL (7-18); CO2 27.5 mmol/L (21.0-32.0); CREATININE 1.1 mg/dL (0.70-1.30); Calcium 9.1 mg/dL (8.5-10.1); Calculated LDL 126 mg/dL (<100); Chloride 106 mmol/L (98-107); Cholesterol 190 mg/dL (<200); Estimated GFR 87.57 (mL/min/1.73m2); Glucose 102 mg/dL (74-106); HDL Cholesterol 51 mg/dL (40-60); Potassium 4.2 mmol/L (3.5-5.1); Sodium 143 mmol/L (136-145); Triglyceride 67 mg/dL (<150)
== END 2023-05-31 17:53 | disposition home or self-care (01) ==
LOC: NCHCN 17:52
PROVIDERS: PCP Family Medicine; Visit Provider Family Medicine
DX: I10 Essential (primary) hypertension (principal); R73.03 Prediabetes; Z13.6 Encounter for screening for cardiovascular disorders
CPT/HCPCS: 80048; 80061; 83036